=== PATIENT | female | born 1940 | race Caucasian/White ===

== ENCOUNTER 2022-12-29 13:36 | Outpatient (CLI) | payer MEDICARE, SELFPAY ==
[2022-12-29 14:37] LABS: Anion Gap 8 mmol/L (8-16); Blood Urea Nitrogen 15 mg/dL (7-17); Calcium 8.9 mg/dL (8.4-10.2); Carbon Dioxide 29 mmol/L (22-30); Chloride 91 mmol/L (98-107); Estimated Glomerular Filt Rate > 60; Glucose 101 mg/dL (65-110); Potassium 3.6 mmol/L (3.4-5.0); Sodium 128 mmol/L (137-145)
== END 2022-12-29 13:37 | disposition home or self-care (01) ==
PROVIDERS: Anesthesiology; PCP Family Medicine; Visit Provider Plastic Surgery
DX: Z51.81 Encounter for therapeutic drug level monitoring (principal); Z79.899 Other long term (current) drug therapy
CPT/HCPCS: 36415; 80048

== ENCOUNTER 2022-12-31 01:29 | Day surgery (SDC) | payer MEDICARE, SELFPAY ==
[2022-12-23 10:36] VITALS: BMI 25.8
--- NOTE | 2022-12-23 10:59 | PC.NURSE ---
Report to the Outpatient Waiting Room, entrance under the green pavilion located off [facility], at time __6:00AM on date ___12/31/22____. Planned Procedure Time: _7:30AM . Time changes happen often and if your time is changed the preop area will call you the afternoon before. - You and your visitor will be asked to self-screen and do not enter if you have any COVID symptoms. - Only one visitor is requested with a max of two and NO children visitors are allowed at this time. - The patient visitor may be requested to leave or wait in car when not with patient due to distancing restrictions. - A mask is optional within the hospital at this time. Patients may have clear liquids (water, carbonated beverages, clear teas, apple juice) until 3 hours prior to surgery with a maximum of 20 ounces. - No food from midnight until time of surgery Take the following medications with a SIP of water the morning of surgery: ___AMLODIPINE, METOPROLOL DO NOT STOP ANY OF YOUR OTHER PRESCRIPTION MEDICATIONS PRIOR TO SURGERY ?EXCEPT THE FOLLOWING Medications to discontinue per physician __HOLD ALL VITAMINS/SUPPLEMENTS 3 DAYS PRE-OP Date to take last dose____12/27/22 Please no make-up, nail slovenian, hairspray, perfume, deodorant, or body powder the day of surgery. No jewelry (including any body piercings) or valuables the day of surgery, leave them at home. Please take a shower or bath the night before, or the morning of, surgery with an antibacterial soap. Wear comfortable, loose fitting clothing. Children are encouraged to wear pajamas. - Jewelry must be removed prior to entering the operating room. Rings and piercings that are not removed may be cut off. - The hospital will not accept responsibility for valuables. - Please leave all valuables, including medications, at home the day of surgery. If you are going home after surgery, a licensed nascar driver must drive you home. - NO public transportation without another adult if you receive anesthesia. - We recommend that an adult stay with you for 24 hours following discharge. - We also recommend that you do not drive, make important decision, drink alcoholic beverages, or take any drugs that were not prescribed by your health care provider for at least 24 hours after your discharge time. Follow any additional instructions given to you from your surgeon. If you or anyone in your household have experienced Covid symptoms in the past week, please notify your surgeon or the nurse liaison at the phone number below for possible testing. Telephone instructions given to ___PATIENT and asked if any additional questions and then verbalized understanding. Patient advised to call surgeon office or pre surgery nurse liaison [phone] if any additional questions.
--- NOTE | 2022-12-30 07:41 | PM.IMHP ---
H&P: HPI History of Present Illness Date/Time: 12/31/22 07:41 Chief Complaint: Basal cell carcinoma above the bulb of the left anterior nose. Narrative: Cheli is an 82-year-old female referred by a geosciences faculty member with a new biopsy report from 11/24/2022 taken from above the bulb of the nose. The diagnosis was basal cell carcinoma. The site is designated as above the bulb of the left anterior nose . The patient has a history of skin cancers on her face. She has agreed to excision of this one to be done with frozen section control. she understands that closure of this wound will require a full-thickness skin graft or a local tissue transfer. She understands the possibility of infection, of deformity of the nose possibly wlith airway obstruction, slow healing. scarring problems, numbness and others and she would like to proceed under MAC anesthesia. Review of Systems Review of Systems: The patient reports treatment or symptoms related to dry eye, high blood pressure, arthritis, skin cancers and shingles. [facility] Social History Social History (Updated 12/30/22 @ 12:52 by Gustavo Hickman MD) Smoking packs per day: 0.2 Smoking cigarettes per day: 4.0 Years smoked: 5 Smoking pack-years: 1.00 Smoking end date: 04/04/85 Substance use: never Living arrangements: other Additional living arrangements comments: SIGNIFICANT OTHER Spiritual care concerns: No Comments The patient lives in [place] she is retired. She lists her son Prabhu as a contact Meds Home Medications and Allergies Home Medications Medication Instructions Recorded Confirmed Type amlodipine 5 mg tablet 5 mg PO QAM 12/23/22 12/23/22 History amoxicillin 875 mg-potassium 1 tablet PO BID 12/23/22 12/23/22 History clavulanate 125 mg tablet atorvastatin 10 mg tablet 10 mg PO HS 12/23/22 12/23/22 History coenzyme Q10 100 mg capsule 100 mg PO HS 12/23/22 12/23/22 History (CoQ-10) diclofenac sodium 75 mg 75 mg PO BID 12/23/22 12/23/22 History tablet,delayed release estradiol 0.5 mg tablet 0.5 mg PO DAILY 12/23/22 12/23/22 History gabapentin 300 mg capsule 300 mg PO HS PRN Pain 12/23/22 12/23/22 History levocarnitine 500 mg tablet 500 mg PO HS 12/23/22 12/23/22 History (L-Carnitine) lisinopril 20 2 tablet PO QAM 12/23/22 12/23/22 History mg-hydrochlorothiazide 12.5 mg tablet loratadine 10 mg capsule 10 mg PO DAILY 12/23/22 12/23/22 History metoprolol tartrate 25 mg tablet 25 mg PO BID 12/23/22 12/23/22 History omeprazole 20 mg capsule,delayed 20 mg PO DAILY 12/23/22 12/23/22 History release tizanidine 4 mg tablet 4 mg PO HS PRN Muscle Pain 12/23/22 12/23/22 History Allergies Allergy/AdvReac Type Severity Reaction Status Date / Time trazodone Allergy Intermediate HALLUCINATI Verified 12/23/22 10:26 ONS adhesive tape Allergy Blister Verified 12/23/22 10:26 Exam Const: General: cooperative and healthy appearing Orientation/consciousness: patient oriented x3 Limitations: no limitations HENMT: Head: normocephalic Face/Nose/Sinus: Normal external nose present Face and sinus: normal facial exam Chest: Chest palpation & inspection: normal inspection of the chest Resp: Effort & Inspection: normal respiratory effort Cardio: Rate: regular rate Rhythm: regular rhythm GI: Inspection: normal to inspection Skin: Lesions: lesion noted (Healed shave biopsy site above the bulb of the anterior nose.) Neuro: General: patient oriented x3 Speech: normal speech Gait exam (Neuro): Normal gait present Extrem: General: normal to inspection Psych: Appearance: grossly normal H&P: Results Labs Labs: Skin biopsy of nose reported from [facility]. Assessment and Plan Assessment and plan (1) Basal cell carcinoma (BCC) of skin of nose: Code(s): C44.311 - Basal cell carcinoma of skin of nose Status: Acute Plan BCC above the bulb of left anterior nose. Excision of sa
[2022-12-31] MEDS: LACTATED RINGERS 1,000 ML 30 ML IV CONT (06:53)
--- NOTE | 2022-12-31 07:00 | WPDANESEPPF ---
Anes - Initial Pre Proc Eval Procedure: Operation Date: 12/31/22 07:30 Proposed Procedures p Excision Basal Cell Carcinoma Above Bulb Left Anterior Nose with Frozen Section and Full Thickness Skin Graft or Local Tissue Transfer - Gustavo Hickman MD Date/Time: 12/31/22 07:00 Surgeon: Gustavo Hickman MD Pre Op Diagnosis: BCCA above bulb left anterior nose Patient Data Age: 82 Gender: F Height: 1.57 m Weight: 64 kg Allergies Allergy/AdvReac Type Severity Reaction Status Date / Time Iodinated Contrast Media Allergy Intermediate Rash Verified 12/31/22 06:44 trazodone Allergy Intermediate HALLUCINATI Verified 12/23/22 10:26 ONS adhesive tape Allergy Blister Verified 12/23/22 10:26 clavulanic acid AdvReac Intermediate Gastrointestinal Verified 12/31/22 06:42 [From Augmentin] Upset shellfish derived AdvReac Gastrointestinal Verified 12/31/22 06:44 Upset Home Medications Medication Instructions Recorded Confirmed Type amlodipine 5 mg tablet 5 mg PO QAM 12/23/22 12/31/22 History atorvastatin 10 mg tablet 10 mg PO HS 12/23/22 12/31/22 History coenzyme Q10 100 mg capsule 100 mg PO HS 12/23/22 12/31/22 History (CoQ-10) diclofenac sodium 75 mg 75 mg PO BID 12/23/22 12/23/22 History tablet,delayed release estradiol 0.5 mg tablet 0.5 mg PO DAILY 12/23/22 12/31/22 History gabapentin 300 mg capsule 300 mg PO HS PRN Pain 12/23/22 12/31/22 History levocarnitine 500 mg tablet 500 mg PO HS 12/23/22 12/31/22 History (L-Carnitine) lisinopril 20 2 tablet PO QAM 12/23/22 12/31/22 History mg-hydrochlorothiazide 12.5 mg tablet loratadine 10 mg capsule 10 mg PO DAILY 12/23/22 12/31/22 History metoprolol tartrate 25 mg tablet 25 mg PO BID 12/23/22 12/31/22 History omeprazole 20 mg capsule,delayed 20 mg PO DAILY 12/23/22 12/31/22 History release tizanidine 4 mg tablet 4 mg PO HS PRN Muscle Pain 03/21/23 03/29/23 History Patient hx anesthesia problems: none Family hx anesthesia problems: none Results Review: All pre-operative results and documents have been reviewed as part of the pre-operative evaluation. [facility] Past Medical History Medical History (Updated 12/31/22 @ 07:00 by Manuel Worthington MD) HTN (hypertension) Hyperlipidemia Social History Social History Smoking packs per day: 0.2 Smoking cigarettes per day: 4.0 Years smoked: 5 Smoking pack-years: 1.00 Smoking end date: 04/04/85 Substance use: never Living arrangements: other Additional living arrangements comments: SIGNIFICANT OTHER Spiritual care concerns: No Anes - Eval Final PreProcedure Day of Procedure 12/31/22 07:00 Patient weight: overweight Heart: regular rate and rhythm Lungs: clear to auscultation Airway: Mallampati scale class II Neurological: alert and oriented Last oral intake: >/= 8 hours ASA classification: II Emergent: no Anesthetic plan: proceed Anesthesia type and monitoring: general GIVS and standard monitoring Results Review: All pre-operative results and documents have been reviewed as part of the pre-operative evaluation. Informed Consent: The patient's anesthetic plan and its attendant risks and benefits were discussed with the patient/family/POA. Questions were solicited and answers provided to the satisfaction of the patient/family/POA.
[2022-12-31 07:02] VITALS: BP 167/61; PULSE 75; RESP 16; TEMP 36.7; O2SAT 98
--- NOTE | 2022-12-31 07:07 | WPDHPUPDATE1 ---
History and Physical Update Update Date/Time: 12/31/22 07:07 History and Physical has been reviewed, including an updated exam of the patient. There are NO changes in the patient's condition. Risks, benefits, and alternatives have been discussed and questions answered. Patient agrees to proceed with procedure.
[2022-12-31 07:20] LABS: Sodium 129 mmol/L (137-145)
[2022-12-31] MEDS: LIDO 1%/EPINEPHRINE 1:100,000 50 ML VIAL 8 ML INFILTRATE (07:24)
[2022-12-31 08:26] VITALS: BP 138/49; PULSE 79; RESP 14; O2SAT 96
[2022-12-31 09:00] VITALS: BP 132/50; PULSE 77; RESP 20
--- NOTE | 2022-12-31 12:13 | W.PM.PROC2 ---
Procedure Note - Detailed Date of Procedure 12/31/22 Pre-op Diagnosis BCCA above bulb left anterior nose Post-op Diagnosis Same Procedure Performed 1 cm excision of BCC above bulb of left anterior nose with FS. Surgeon Gustavo Hickman MD Manager Of [facility] Anesthesia MAC Indications biopsy Findings no residual tumor Description of Procedure the patient was greeted in the holding [place]. The site on her nose was identified with her and with her consent. We applied an ink mata. She was then taken to the operating room where she was placed supine on the operating table. She was given IV sedation. The face and left neck area were prepped and draped in usual fashion. The site on her nose from the biopsy was marked for excision. This area was locally infiltrated with 1% lidocaine with epinephrine. The lesion with a estimated 3 mm margin was incised into the subcutaneous tissue and taken off with scissors. The most superior aspect was marked with a suture for 12 o'clock. The specimen was sent to pathology. The pathologist reported that there was no residual tumor. Bleeding had been controlled with cautery set on 15. prior to receiving the report from pharmacy I had received information of a personal emergency . At that point I had not decided upon the technique for closure. There was no bleeding we applied a Xeroform and gauze bandage to the nose and I terminated the case. The patient's program services planner was contacted and the situation was explained. Discharge orders were written for follow-up in the office in 2 days, no dressing burger, and a prescription for hydrocodone 5/325 5. Estimated Blood Loss 2 Drains No Packing No Pathology Yes Complications No immediate complications Condition Stable Disposition Same day
== END 2022-12-31 09:15 | disposition home or self-care (01) ==
PROVIDERS: PCP Family Medicine; Visit Provider Plastic Surgery
PROC: (CPT 11641; principal; 2022-12-31 07:30)
DX: C44.311 Basal cell carcinoma of skin of nose (principal); I10 Essential (primary) hypertension; E78.5 Hyperlipidemia, unspecified; Z87.891 Personal history of nicotine dependence
CPT/HCPCS: 11641; 36415; 84295; 88305; 88331; A9270; J2704; J7120

== ENCOUNTER 2023-01-08 01:45 | Day surgery (SDC) | payer MEDICARE, SELFPAY ==
[2023-01-05 08:38] VITALS: BMI 25.8
--- NOTE | 2023-01-05 08:52 | PC.NURSE ---
Report to the Outpatient Waiting Room, entrance under the green pavilion located off [facility], at time _8:00AM on date _01/08/23 . Planned Procedure Time: __10:00AM . Time changes happen often and if your time is changed the preop area will call you the afternoon before. - You and your visitor will be asked to self-screen and do not enter if you have any COVID symptoms. - Only one visitor is requested with a max of two and NO children visitors are allowed at this time. - The patient visitor may be requested to leave or wait in car when not with patient due to distancing restrictions. - A mask is optional within the hospital at this time. Patients may have clear liquids (water, carbonated beverages, clear teas, apple juice) until 3 hours prior to surgery with a maximum of 20 ounces. - No food from midnight until time of surgery Take the following medications with a SIP of water the morning of surgery: ___METOPROLOL DO NOT STOP ANY OF YOUR OTHER PRESCRIPTION MEDICATIONS PRIOR TO SURGERY ?EXCEPT THE FOLLOWING Medications to discontinue per physician ___HOLD ALL VITAMINS/SUPPLEMENTS 3 DAYS PRE-OP Date to take last dose____01/04/23 Please no make-up, nail faroese, hairspray, perfume, deodorant, or body powder the day of surgery. No jewelry (including any body piercings) or valuables the day of surgery, leave them at home. Please take a shower or bath the night before, or the morning of, surgery with an antibacterial soap. Wear comfortable, loose fitting clothing. Children are encouraged to wear pajamas. - Jewelry must be removed prior to entering the operating room. Rings and piercings that are not removed may be cut off. - The hospital will not accept responsibility for valuables. - Please leave all valuables, including medications, at home the day of surgery. If you are going home after surgery, a licensed uke driver must drive you home. - NO public transportation without another adult if you receive anesthesia. - We recommend that an adult stay with you for 24 hours following discharge. - We also recommend that you do not drive, make important decision, drink alcoholic beverages, or take any drugs that were not prescribed by your health care provider for at least 24 hours after your discharge time. Follow any additional instructions given to you from your surgeon. If you or anyone in your household have experienced Covid symptoms in the past week, please notify your surgeon or the nurse liaison at the phone number below for possible testing. Telephone instructions given to __PATIENT and asked if any additional questions and then verbalized understanding. Patient advised to call surgeon office or pre surgery nurse liaison [phone] if any additional questions.
[2023-01-08] VITALS (9 sets, daily range): BP systolic 138–167; BP diastolic 55–103; PULSE 69–88; RESP 12–16; TEMP 36.1–36.2; O2SAT 95–99
--- NOTE | 2023-01-08 07:15 | WPDHPUPDATE1 ---
History and Physical Update Update Date/Time: 01/08/23 07:15 History and Physical has been reviewed, including an updated exam of the patient. There are NO changes in the patient's condition. Risks, benefits, and alternatives have been discussed and questions answered. Patient agrees to proceed with procedure.
[2023-01-08 08:48] LABS: Sodium 131 mmol/L (137-145)
--- NOTE | 2023-01-08 08:50 | WPDANESEPPF ---
Anes - Initial Pre Proc Eval Procedure: Operation Date: 01/08/23 10:00 Proposed Procedures p Local Tissue Transfer Reconstruction of Surgical Defect of the Nose - Gustavo Hickman MD Date/Time: 01/08/23 08:50 Surgeon: Gustavo Hickman MD Pre Op Diagnosis: SURGICAL WOUND OF NOSE Patient Data Age: 82 Gender: F Height: 1.57 m Weight: 64 kg Allergies Allergy/AdvReac Type Severity Reaction Status Date / Time Iodinated Contrast Media Allergy Intermediate Rash Verified 01/05/23 08:31 trazodone Allergy Intermediate HALLUCINATI Verified 01/05/23 08:31 ONS adhesive tape Allergy Blister Verified 01/05/23 08:31 clavulanic acid AdvReac Intermediate Gastrointestinal Verified 01/05/23 08:31 [From Augmentin] Upset/DIARRHEA shellfish derived AdvReac Gastrointestinal Verified 01/05/23 08:31 Upset/DIARRHEA Home Medications Medication Instructions Recorded Confirmed Type amlodipine 5 mg tablet 5 mg PO HS 12/23/22 01/05/23 History atorvastatin 10 mg tablet 10 mg PO HS 12/23/22 01/05/23 History coenzyme Q10 100 mg capsule 100 mg PO HS 12/23/22 01/05/23 History (CoQ-10) diclofenac sodium 75 mg 75 mg PO BID 12/23/22 01/05/23 History tablet,delayed release estradiol 0.5 mg tablet 0.5 mg PO DAILY 12/23/22 01/05/23 History gabapentin 300 mg capsule 300 mg PO HS PRN Pain 12/23/22 01/05/23 History levocarnitine 500 mg tablet 500 mg PO HS 12/23/22 01/05/23 History (L-Carnitine) lisinopril 20 2 tablet PO QAM 12/23/22 01/05/23 History mg-hydrochlorothiazide 12.5 mg tablet loratadine 10 mg capsule 10 mg PO DAILY 12/23/22 01/05/23 History metoprolol tartrate 25 mg tablet 25 mg PO BID 12/23/22 01/05/23 History omeprazole 20 mg capsule,delayed 20 mg PO DAILY 12/23/22 01/05/23 History release tizanidine 4 mg tablet 4 mg PO HS PRN Muscle Pain 12/23/22 01/05/23 History hydrocodone 5 mg-acetaminophen 325 1 tablet PO Q6H PRN pain #5 tabs 12/31/22 01/05/23 Rx mg tablet L.acidophil-L.casei-B.bifid-B.longum-FOS 1 cap PO BID 01/05/23 01/05/23 History 2 billion cell-50 mg capsule (Probiotic Blend) cholecalciferol (vitamin D3) 50 50 mcg PO DAILY 01/05/23 01/05/23 History mcg (2,000 unit) tablet magnesium 500 mg tablet 15 mg PO HS 01/05/23 01/05/23 History Laboratory Tests 01/08/23 08:33 Sodium 131 mmol/L L mmol/L (137-145) Patient hx anesthesia problems: none Family hx anesthesia problems: none Results Review: All pre-operative results and documents have been reviewed as part of the pre-operative evaluation. [facility] Past Medical History Medical History HTN (hypertension) Hyperlipidemia Social History Social History Smoking packs per day: 0.2 Smoking cigarettes per day: 4.0 Years smoked: 5 Smoking pack-years: 1.00 Smoking status: Former smoker Tobacco type: cigarettes Smoking end date: 04/04/83 Substance use: never Living arrangements: other Additional living arrangements comments: SIGNIFICANT OTHER Spiritual care concerns: No Anes - Eval Final PreProcedure Day of Procedure 01/08/23 08:50 Patient weight: normal Heart: regular rate and rhythm Lungs: clear to auscultation Airway: Mallampati scale class 1 Neurological: alert and oriented Last oral intake: >/= 8 hours ASA classification: III Emergent: no Anesthetic plan: proceed Anesthesia type and monitoring: general GIVS and standard monitoring Results Review: All pre-operative results and documents have been reviewed as part of the pre-operative evaluation. Informed Consent: The patient's anesthetic plan and its attendant risks and benefits were discussed with the patient/family/POA. Questions were solicited and answers provided to the satisfaction of the patient/family/POA.
[2023-01-08] MEDS: LACTATED RINGERS 1,000 ML 30 ML IV CONT ×2 (08:57→11:07)
[2023-01-08] MEDS: ceFAZolin 2 GM/D5W 50 ML 2 GM/50 ML BAG IVPB (10:03)
[2023-01-08] MEDS: LIDO 1%/EPINEPHRINE 1:100,000 50 ML VIAL 10 ML INFILTRATE (10:51)
[2023-01-08] MEDS: BALANCED SALT SOLN OPHTH IRRIG 30 ML BTL 5 ML EACH EYE (10:56)
--- NOTE | 2023-01-08 11:35 | W.PM.PROC2 ---
Procedure Note - Detailed Date of Procedure 01/08/23 Pre-op Diagnosis SURGICAL WOUND OF NOSE Post-op Diagnosis Same Procedure Performed 4 cm local tissue transfer for reconstruction of surgical wound of the left side of nose Surgeon Gustavo Hickman MD Housekeeping Lead Kavya Duenas [facility] Delayed repair of 1 cm excision for basal cell carcinoma of the left side of the nose Findings Stable wound bed Description of Procedure Site was marked on the patient in the holding area with her consent. She was taken to the operating room where she was placed supine on the operating table. She was given IV sedation. The face was prepped and draped in usual fashion. A time-out was held and confirmed. The site was measured and markings applied to the left side of the nose for a local tissue transfer which is a rotation advancement flap. The site was widely infiltrated with 1% lidocaine with epinephrine. The wound bed was sharply debrided to remove all granulation tissue. The site was irrigated. One the incisions were made for the flap and the Burow's triangle on the left side of the nose. The area was widely undermined with the Littler scissors primarily. The flap was rotated and the Burow's triangle excised. The base of the flap was advanced medially and the repair was done with intradermal 4-0 Vicryl at several sites and running 6 0 nylon to close the skin. There was no significant tension. A little bit of the dorsum of the nasal cartilage and soft tissue was shaved off of a 15 blade to improve contour prior to closure. Patient was discharged from the operating room in stable condition after applying 1 quarter-inch Steri-Strips. Estimated Blood Loss -2.0 Drains No Packing No Pathology None sent Complications No immediate complications Condition Stable Disposition PACU
[2023-01-08] MEDS: fentaNYL CITRATE INJ (*CRX) 100 MCG/2 ML VIAL 25 MCG IV PUSH ×2 (11:53→11:56)
[2023-01-08] MEDS: oxyCODONE HCL (*CRX) 5 MG TAB IR PO (13:10)
== END 2023-01-08 13:59 | disposition home or self-care (01) ==
PROVIDERS: Anesthesiology; PCP Family Medicine; Visit Provider Plastic Surgery
PROC: (CPT 14060; principal; 2023-01-08 10:00)
DX: Z48.1 Encounter for planned postprocedural wound closure (principal); Z85.828 Personal history of other malignant neoplasm of skin; I10 Essential (primary) hypertension; E78.5 Hyperlipidemia, unspecified; Z87.891 Personal history of nicotine dependence
CPT/HCPCS: 14060; 36415; 84295; A9270; J0690; J1100; J2405; J2704; J3010; J7120